=== PATIENT | male | born 1975 | race Caucasian/White ===

== ENCOUNTER 2017-05-30 06:07 | Observation (INO) | payer OTHER ==
[2017-05-15 16:24] VITALS: BMI 59.0
[~2017-05-30] VITALS: Ht 177.8 cm; Wt 187.0 kg
[2017-05-30] VITALS (12 sets, daily range): BP systolic 91–137; BP diastolic 52–84; PULSE 60–66; TEMP 36.5–37; O2SAT 91–100; Ht 177.8 cm; Wt 187.0 kg
[~2017-05-30 06:07] MED LIST: ALLO100T PO; ASPI81TA28 PO; ATOR80TA PO; CALC0.2510 PO; CARV12.52 PO; CEFAZOLIN 3000MG IV PUSH 22.5 ML IV SCH; CHOL2000 PO; CITA20TA9 PO; CRD200 PO; GABA-112 PO; INSHRI SQ; LNX125 PO; MULT-506 PO; MXT150 PO; RANI150T85 PO; SACU1TAB7 PO; TORS100T13 PO; WARF5TAB90 PO
[2017-05-30] MEDS: LACTATED RINGER'S 1000ML IV SCH ×2 (06:42→07:16)
[2017-05-30] MEDS ORDERED: BACITRACIN 50000 UNIT VIAL ONE (06:45)
[2017-05-30] MEDS ORDERED: BUPIVACAINE 0.5 % 5 MG/1 ML MPF 30ML VIAL ONE (06:45)
[2017-05-30] MEDS ORDERED: LIDOCAINE HCL 1% 20 ML VIAL ONE (06:45)
[2017-05-30] MEDS ORDERED: DEXTROSE 50% 50 ML SYR ONE ×2 (07:02→12:36)
[2017-05-30 07:05] LABS: INR 1.6 (0.9-1.1); PTT PATIENT 32.9 SECONDS (21.0-31.0)
[2017-05-30] MEDS ORDERED: ALBU4TAB10 PO (07:14)
[2017-05-30] MEDS ORDERED: NURSING VERBAL MED ORDER ONE ×6 (07:15→16:45)
[2017-05-30] MEDS ORDERED: ATROPINE SULFATE 0.1 MG/ML 5ML SYR IV PRN (07:30)
[2017-05-30] MEDS ORDERED: ONDANSETRON INJ 2 MG/ML 2 ML VIAL IV PRN (07:30)
[2017-05-30] MEDS ORDERED: EpHEDrine SULFATE INJ 50 MG/ML AMP IV PRN (07:30)
[2017-05-30] MEDS ORDERED: FENTANYL CITRATE INJ 50 MCG/1 ML 2 ML VIAL IV PRN (07:30)
[2017-05-30] MEDS ORDERED: SODIUM CHLORIDE 0.9% 1000ML 1,000 ML IV SCH (07:30)
[2017-05-30] MEDS ORDERED: FENTANYL CITRATE INJ 50 MCG/1 ML 2 ML VIAL ONE (07:52)
[2017-05-30] MEDS ORDERED: LIDOCAINE HCL 2% 2 ML VIAL (20MG/ML) ONE (07:52)
[2017-05-30] MEDS ORDERED: SUCCINYLCHOLINE CHLORIDE 20 MG/ML 10 ML VIAL IV ONE (07:52)
[2017-05-30] MEDS ORDERED: PROPOFOL IV EMULSION 10 MG/ML 20 ML VIAL IV ONE (07:52)
[2017-05-30] MEDS ORDERED: MIDAZOLAM HCL 1 MG/ML 2ML VIAL ONE ×3 (07:52→11:01)
--- NOTE | 2017-05-30 07:56 | History & Physical Bridge Note ---
H&P Re-Evaluation Bridge Note: I have examined the patient, reviewed the History & Physical and in the interval since the performance of the History & Physical I have noted the following changes of clinical significance: No changes noted
[2017-05-30] MEDS ORDERED: KETAMINE HCL INJ 50 MG/ML 10 ML VIAL ONE (09:59)
[2017-05-30] MEDS ORDERED: EpINEphrine INJ 1MG/ML AMP 1 MG/ML AMP ONE (10:48)
--- NOTE | 2017-05-30 13:23 | Anesthesiology Progress Note ---
Anesthesia Post Op Note Date & Time May 30, 2017 at 13:23 Vital Signs Pain Intensity: 3 Vital Signs Past 12 Hours Date Time Temp Pulse Resp B/P (MAP) Pulse Ox O2 Delivery O2 Flow Rate FiO2 05/30/17 13:14 60 16 124/71 (88) 96 Nasal Cannula 3 05/30/17 13:10 60 16 122/70 (87) 96 Nasal Cannula 3 05/30/17 06:49 36.5 65 20 120/68 94 Room Air Notes Mental Status: alert / awake / arousable, participated in evaluation Pt Amnestic to Procedure: Yes Nausea / Vomiting: adequately controlled Pain: adequately controlled Airway Patency, RR, SpO2: stable & adequate BP & HR: stable & adequate Hydration State: stable & adequate Anesthetic Complications: no major complications apparent
--- NOTE | 2017-05-30 13:38 | [facility] Post Operative Brief Note ---
Immediate Operative Summary Operative Date May 30, 2017. Pre-Operative Diagnosis icm EF<20%, LBBB, Chronic systolic HF-NYHA Class III, pVT Post-Operative Diagnosis same Procedure(s) Performed upgrade from a single chamber ICD to a BiVentricular ICD, peripheral and coronary sinus venogram Surgeon kadie vicente Soccer Player Surgeon(s) none Estimated Blood Loss 30cc Findings See Below (see offiical report) see offiical report Fluids (cc crystalloids) 500cc D5W; 600ccLR Specimens None Drains None Anesthesia Type MAC Complication(s) none Disposition Accompanied Pt To Recover: yes Disposition: PCU
[2017-05-30] MEDS ORDERED: LPT20 PO (13:39)
--- NOTE | 2017-05-30 13:41 | Discharge Instructions ---
Discharge Instructions Date of Service May 30, 2017. Admission Reason for Admission: Ischemic Cardiomyopathy Discharge Discharge Diagnosis / Problem: ICM EF <20%, LBBB, Chronic systolic HF-NYHA Class III; pVT Discharge Goals Goal(s): Improve function Activity Recommendations Activity Limitations: as noted below Lifting Limitations: no more than 10 pounds (do not lift more than 10 pounds with your left arm for 2 weeks; do not lift the left elbow over the left shoulder for 1 month) May Resume Sexual Activity: after two weeks Shower/Bathe: tomorrow Driving or Machine Use: resume 3 days after discharge . Instructions / Follow-Up Instructions / Follow-Up ACTIVITY RECOMMENDATIONS: * Do not raise affected arm over head for 4 weeks. SPECIAL CARE INSTRUCTIONS: * If bleeding occurs, apply direct pressure to area for 5 minutes. * Call your doctor if you have severe pain, fever, drainage or bleeding at site. * Keep dressing on and dry for 48 hours then remove. * Keep any scheduled doctor's appointment. * Implant Card - hand held device with website information given. SKIN IRRITATION: * You may experience some redness and/or swelling in the area where radiation was administered. If any skin irritation occurs, please contact your family physician. FOLLOW UP VISIT: Keep any scheduled doctor appointments. Current Hospital Diet Patient's current hospital diet: AHA Diet (Heart Healthy), Low Sodium Diet (2gm Na), Diabetes Type 2 Diet Discharge Diet Recommended Diet: AHA Diet (Heart Healthy), Low Sodium Diet (2gm Na), Diabetes Type 2 Diet Procedures Procedures Performed: upgrade from a single chamber ICD to a BiVentricular ICD, peripheral and coronary sinus venogram Pending Studies Studies pending at discharge: no Medical Emergencies . Who to Call and When: Medical Emergencies: If at any time you feel your situation is an emergency, please call 911 immediately. . Non-Emergent Contact Non-Emergency issues call your: Grade Tamper . . "Provider Documentation" section prepared by Lela Ren. . VTE Core Measure Inpt VTE Proph given/why not?: Warfarin (Coumadin)
[2017-05-30] MEDS ORDERED: ACETAMINOPHEN 325 MG TAB PO PRN (13:45)
--- NOTE | 2017-05-30 13:48 | Discharge Summary ---
Discharge Summary Date of Service May 30, 2017. Discharge Summary Admission Date: 05/30/2017 Discharge Date: May 31, 2017 Discharge Disposition: Home Principal Diagnosis: ICM EF <20%, LBBB, Chronic systolic HF-NYHA Class III, pVT Secondary Diagnoses/Problems: HTN, HLD, H/O LV mural thrombus on most recent echo was calcified, VIVIANE, Morbid obesity, CKD stage II Procedures: Upgrade from a single chamber ICD to a BiVentricular rate responsive ICD with peripheral and coronary sinus venogram under fluoroscopic guidance Medication Reconciliation New Medications: Atorvastatin (Lipitor) 20 Mg Tab 40 MG PO HS for 30 Days, TAB Continued Medications: Albuterol (Ventolin) 4 Mg Tab 4 MG PO inhaler, TAB Allopurinol (Zyloprim) 100 Mg Tab 100 MG PO BID, TAB Amiodarone HCl (Amiodarone HCl) 200 Mg Tab 200 MG PO UD, TAB TID FOR 2 WEEKS AND THE BID FOR 1 WEEK Aspirin (Aspirin Ec) 81 Mg Tab 81 MG PO QAM Calcitriol (Rocaltrol Cap) 0.25 Mcg Cap 0.25 MCG PO M W , CAP Carvedilol (Coreg) 12.5 Mg Tab 12.5 MG PO BID, TAB Cholecalciferol (Vitamin D3) 2,000 Unit Cap 1 CAP PO QAM, CAP 3 Refills Citalopram Hydrobromide (Celexa) 20 Mg Tab 20 MG PO QAM, TAB Digoxin (Digoxin) 0.125 Mg Tab 0.125 MG PO QAM EVERYDAY EXCEPT TUES, THURS Gabapentin (Neurontin) 100 Mg Cap 100 MG PO TID, CAP Mexiletine Hcl (Mexiletine Hcl) 150 Mg Cap 150 MG PO TID Multivitamin (Multivitamin) Tab 1 TAB PO QAM, TAB Ranitidine (Zantac) 150 Mg Tab 150 MG PO BID, TAB Sacubitril-Valsartan (Entresto 49-51 mg) 1 Tab Tab 1 TAB PO BID Torsemide (Demadex) 100 Mg Tab 50 MG PO BID, TAB Warfarin Sodium (Coumadin) 5 Mg Tab 7.5 MG PO HS, TAB [Humulin R] () 1 DOSE SQ UD INUSLIN PUMP Discontinued Medications: Atorvastatin (Lipitor) 80 Mg Tab 80 MG PO HS, TAB Admission Information Physical Exam (per Admitting): aaox3, NAD NC/AT, EOMI Supple Distant S1/S2, no murmur appreciated CTA b/l No w/r/r Soft obese +1 LE edema No focal deficits Skin intact Hospital Course Pt admitted for upgrade from single chamber ICD to BiV rate Responsive ICD with peripheral and coronary sinus venogram due to ICM EF <20%, LBBB, Chronic systolic HF-NYHA Class III, pVT. He underwent procedure without any complications. He had a CMP, Digoxin level-morning of discharge. He is to continue on amiodarone 200mg daily, mexiletine 150mg TID, his lipitor should be decreased to 40mg daily upon discharge. He was discharged home. Total time spent on discharge = 30 minutes This includes examination of the patient, discharge planning, medication reconciliation, and communication with other providers. Discharge Instructions ACTIVITY RECOMMENDATIONS: * Do not raise affected arm over head for 4 weeks. SPECIAL CARE INSTRUCTIONS: * If bleeding occurs, apply direct pressure to area for 5 minutes. * Call your doctor if you have severe pain, fever, drainage or bleeding at site. * Keep dressing on and dry for 48 hours then remove. * Keep any scheduled doctor's appointment. * Implant Card - hand held device with website information given. SKIN IRRITATION: * You may experience some redness and/or swelling in the area where radiation was administered. If any skin irritation occurs, please contact your family physician. FOLLOW UP VISIT: Keep any scheduled doctor appointments.
[2017-05-30] MEDS ORDERED: IV FLUIDS COMPLETED PRN ×2 (14:45)
[2017-05-30] MEDS: MULTIVITAMIN TAB PO SCH (15:43)
[2017-05-30] MEDS: TORSEMIDE 20 MG TAB PO SCH (15:44)
[2017-05-30] MEDS: GABAPENTIN 100 MG CAP PO SCH ×2 (15:45→21:33)
[2017-05-30] MEDS: SACUBITRIL-VALSARTAN 49-51 MG TAB PO SCH (15:45)
[2017-05-30] MEDS ORDERED: GLUCAGON FOR INJ 1 MG VIAL SQ PRN (15:45)
[2017-05-30] MEDS ORDERED: GLUCOSE 10 TABS/TUBE PO PRN (15:45)
[2017-05-30] MEDS ORDERED: GLUCOSE 40% GEL 15 GM TUBE PO PRN (15:45)
[2017-05-30] MEDS ORDERED: HumuLIN-R 10 ML VIAL SC PRN (15:45)
[2017-05-30] MEDS ORDERED: DEXTROSE 50% 50 ML SYR IV PRN (15:45)
[2017-05-30] MEDS: OXYCODONE/ACETAMINOPHEN 5-325 TAB PO PRN (15:48)
[2017-05-30] MEDS: RANITIDINE HCL 150 MG TAB PO SCH (15:48)
[2017-05-30] MEDS: ALLOPURINOL 100 MG TAB PO SCH (15:49)
[2017-05-30] MEDS: CITALOPRAM 20 MG TAB PO SCH (15:50)
[2017-05-30] MEDS: [UNRECOGNIZED DRUG - OTHER] SCH ×2 (15:53→21:36)
[2017-05-30] MEDS: AMIODARONE 200 MG TAB PO SCH (18:23)
[2017-05-30] MEDS ORDERED: ATORVASTATIN 40 MG TAB PO SCH (21:00)
[2017-05-30] MEDS ORDERED: WARFARIN SOD 7.5 MG TAB PO SCH (21:00)
[2017-05-30] MEDS: CARVEDILOL 12.5 MG TAB PO SCH (21:35)
[2017-05-30] MEDS: MEXILETINE HCL 150 MG PO SCH (21:36)
[2017-05-31] VITALS: O2SAT 93
[2017-05-31] MEDS: OXYCODONE/ACETAMINOPHEN 5-325 TAB PO PRN ×2 (02:00→07:40)
[2017-05-31 03:50] VITALS: BP 137/83; PULSE 63; TEMP 36.6; O2SAT 94
[2017-05-31 04:00] VITALS: O2SAT 93
[2017-05-31 06:57] LABS: ALBUMIN 2.4 gm/dl (3.4-5.0); CALCIUM 8.4 mg/dl (8.5-10.1); CREATININE 2.41 mg/dl (0.60-1.40); POTASSIUM 4.1 mmol/L (3.5-5.1)
[2017-05-31 06:59] LABS: TOTAL PROTEIN 6.7 gm/dl (6.4-8.2)
[2017-05-31] MEDS: [UNRECOGNIZED DRUG - OTHER] SCH (07:00)
--- NOTE | 2017-05-31 07:12 | DIAGNOSTIC IMAGING REPORT ---
TWO VIEW CHEST CLINICAL HISTORY: Cardiac pacemaker implantation. FINDINGS: PA and lateral chest radiographs are obtained. No prior studies are available for comparison at the time of dictation. The PA views are degraded by apical lordotic positioning. A 3-lead cardiac AICD has been placed. Leads project over the right atrial appendage, the right ventricle, and coronary sinus. The heart is markedly enlarged. The pulmonary vasculature is noncongested. No airspace consolidation or pleural effusion is identified. There is no pneumothorax. The bony thorax appears intact. IMPRESSION: 1. Status post AICD implantation as above. No pneumothorax is seen post procedure. 2. Cardiomegaly without radiographic evidence of congestive failure. 3. The lungs are clear. Electronically signed by: Raphael Reyes M.D. 05/31/2017 7:10 AM Dictated Date/Time: 05/31/2017 7:09 AM
[2017-05-31 07:37] VITALS: BP 114/77; PULSE 60; TEMP 36.6; O2SAT 95
[2017-05-31] MEDS: CARVEDILOL 12.5 MG TAB PO SCH (07:41)
[2017-05-31] MEDS: GABAPENTIN 100 MG CAP PO SCH (07:41)
[2017-05-31] MEDS: ALLOPURINOL 100 MG TAB PO SCH (07:42)
[2017-05-31] MEDS: RANITIDINE HCL 150 MG TAB PO SCH (07:42)
[2017-05-31] MEDS: TORSEMIDE 20 MG TAB PO SCH (07:42)
[2017-05-31] MEDS: AMIODARONE 200 MG TAB PO SCH (07:43)
[2017-05-31] MEDS: MEXILETINE HCL 150 MG PO SCH (07:44)
--- NOTE | 2017-05-31 08:04 | OPERATIVE REPORT ---
DATE OF OPERATION: 05/30/2017 PREOPERATIVE DIAGNOSES: Ischemic cardiomyopathy, ejection fraction less than 20%, left bundle-branch block, chronic systolic heart failure [place] Heart Association class 3, paroxysmal ventricular tachycardia, on mexiletine and amiodarone. POSTOPERATIVE DIAGNOSES: Same. PROCEDURE: Upgrade from a single chamber implantable cardiac defibrillator to biventricular rate responsive implantable cardiac defibrillator along with peripheral and coronary sinus venogram, all under fluoroscopic guidance. SURGEON: Lela Ren DO. RENTAL CLERK: None. ANESTHESIA: Monitored anesthetic care administered via anesthesiology. Total of 6 mg of Versed, 100 mcg of fentanyl, 50 mg of ketamine; start time 9:19, end time 12:55. ANTIBIOTICS: 3 grams of Ancef. IV FLUIDS: 500 mL of D5W and 600 mL of LR. BLOOD LOSS: 30 mL CONTRAST: 30 mL COMPLICATIONS: None. CONDITION: Stable. URINE OUTPUT: Not applicable. SPECIMENS: None. FINDINGS: See below. DRAINS: None. INDICATIONS: This is a 42-year-old gentleman who has a past medical history for ischemic cardiomyopathy, ejection fraction less than 20%, left bundle-branch block, chronic systolic heart failure [place] Heart Association class 3, paroxysmal ventricular tachycardia with ICD shock in 04/2017, started on mexiletine, had recurrent VT, so amiodarone was added on 05/13/2017, coronary artery disease status post STEMI years ago at [place], he had a proximal 95% LAD along with a distal 100% and with a large thrombus that had spontaneous dissection with distal emboli, hypertension, hyperlipidemia, history of LV mural thrombus that was found in 2016, on his most recent echo in 04/2017 the thrombus looked calcified, morbid obesity, obstructive sleep apnea, on CPAP, chronic kidney disease stage II. He was recommended upgrade to a biventricular defibrillator. CONSENT: Consent was obtained prior to the patient going into the electrophysiology lab. The patient was informed of the risks, benefits and alternatives to the procedure. Risks include but not limited to sudden cardiac , cardiac arrhythmias, cerebrovascular accident, myocardial infarction, injury to blood vessels, chamber of the heart, lungs, bleeding and infection. The patient understood these risks and agreed to the procedure as planned. Informed consent was obtained. DESCRIPTION OF THE PROCEDURE: The patient was brought into the electrophysiology lab in a fasting state. He was connected to continuous cardiac monitoring. A timeout was performed to ensure the patient's identity and procedure correctly. The patient also got a right radial artery A-line via anesthesiology. He was prepped and draped over the left infraclavicular space in a normal surgical standard fashion. Monitored anesthetic care was given throughout the procedure for the patient's comfort level via anesthesiology. [place] precautions were maintained throughout the procedure. 20 mL of 1% lidocaine-bupivacaine mixture were given in the left deltopectoral groove. Incision was made in left deltopectoral groove. We did a peripheral venogram using 10 mL of IV contrast diluted in 10 mL of saline, followed by 20 mL flush; however, probably due to his low cardiac output, the venogram was not the best, so I repeated it with just 10 mL of strength, followed by a flush. The fill was not the greatest and I was concerned that there might actually be some part of an occlusion in the subclavian vein. I was luckily able to get venous access with a very medial subclavian vein stick and a Glidewire was inserted without any resistance. A long 9-Bengali sheath was inserted over the guidewire without any resistance. The dilator was removed and 2 wires were placed down through the sheath to allow for retained venous access. The sheath was removed, flushed, dilator reinserted over, and then it was reinserted over one of the Glidewires without any resistance. The Glidewire and dilator were removed. The Glidewire was then placed over an MPX Medtronic coronary sinus sheath and inserted into the right ventricle. The dilator and the guidewire was removed, and coronary sinus access was obtained using the diagnostic coronary sinus Decapolar EP catheter which helped me see the AV electrograms. I then was able to slide the MPX over the EP catheter into the coronary sinus. Coronary sinus venogram was performed which identified 2 small posterolateral branches. They seemed to be a little bit on the truncated side. We were able to float a Whisper wire down into one of the branches. Since there was a little bit of a takeoff, I did then also use a 90 inner catheter to get me more support into the branch. Then, we tracked the left ventricular pacing lead over the Whisper wire out into the peripheral branch. We had decent thresholds. The Whisper wire was then removed and a stylet was placed to have some support. Then, under fluoroscopic guidance, the 90 inner sheath was split, followed then by the MPX sheath. I then placed a long 7-Bengali sheath through one of the retained guidewires without any resistance. The guidewire and dilator removed, and we positioned the right atrial lead onto the lateral wall of the right atrium. There was adequate pacing and sensing thresholds with no diaphragmatic stimulation with high output pacing. The long 7-Bengali sheath was peeled away under fluoroscopic guidance and the right atrial lead was sutured down to the pectoralis muscle. I then split the long 9-Bengali sheath that was on the LV lead under fluoroscopic guidance and then the LV lead was sutured down to the pectoralis muscle. The defibrillator pocket was expanded and disrupted caudally and inferiorly and then washed with bacitracin and saline, flushed. I then detached the old right ventricular lead, we tested it intraoperatively, see below for results. Then, it was attached to the new defibrillator, making sure that the pins were in appropriate position, passed set screws, followed then by the new LV and RA leads were attached to the new defibrillator, making sure that the pins were in appropriate position, passed set screws. The defibrillator and the new RA and RV leads were placed in an antibiotic pouch and then the defibrillator was placed in the pocket, making sure that the leads were lying flat beneath the device. Dejuan stat was placed in the pocket. Then, the incision was closed in a 3-layer fashion using 2-0 Vicryl interrupted suture, followed by 3-0 Vicryl interrupted suture, followed by 4-0 Monocryl running stitch. Dermabond was applied, followed by a pressure dressing. EQUIPMENT: 1. The explanted generator is a Artis II VR [id number], serial number [id number], implanted 11/30/2009, voltage 2.63 volts. 2. The new defibrillator generator is a [employer] MRI quad [employer]OR-D SureScan [id number], serial #[id number]. 3. Right atrial lead, Medtronic 5076-58 cm, serial #[id number]. 4. Right ventricular lead model number 6947-75 cm, serial #[id number], implanted 11/30/2009. 5. Left ventricular pacing lead is a Medtronic 4598-88 cm, serial #[id number]. INTRAOPERATIVE TESTIN. Right atrial lead: P-wave 5.9 millivolts, impedance 707 ohms, threshold 0.5 volts at 0.7 milliamps. 2. Right ventricular lead: R-wave 13.7 millivolts, impedance 669 ohms, threshold 0.9 volts at 1.3 milliamps. 3. Left ventricular lead programmed bipolar LV2-LV3, impedance 451 ohms, threshold 1.2 volts at 3.5 milliamps. FINAL MEASUREMENTS THROUGH THE DEVICE: 1. Right atrial lead: P-wave 2.4 millivolts, impedance 513 ohms, threshold 3.5 volts at 0.4 milliseconds. 2. Right ventricular lead: R-wave 13 millivolts, impedance 570 ohms, threshold 1 volt at 0.4 milliseconds. 3. Left ventricular lead programmed LV2-LV3, impedance 551 ohms, threshold 1.5 volts at 0.4 milliseconds. 4. RV coil 46 ohms. 5. SVC coil 58 ohms. FINAL PARAMETERS: MVP-R 60/130. Right atrial amplitude 5 volts, pulse width 0.4 milliseconds, sensitivity 0.3 millivolts; right ventricular amplitude 2 volts, pulse width 0.4 milliseconds, sensitivity 0.3 millivolts; the left ventricular amplitude 4 volts, pulse width 0.4 milliseconds, a VF zone at 200 beats per minute for 12/16 detection intervals, a VT zone at 167 beats per minute with 16 detection intervals, a monitor zone at 146 beats per minute. His DFTs from original implant were 18 joules. IMPRESSION: Successful upgrade from a single chamber implantable cardiac defibrillator to a biventricular rate responsive implantable cardiac defibrillator under fluoroscopic guidance along with a peripheral and coronary sinus venogram due to ischemic cardiomyopathy, left bundle-branch block, chronic systolic heart failure [place] Heart Association class 3 and paroxysmal ventricular tachycardia. PLAN: Monitor the patient overnight, 12-lead ECG, chest x-ray. He is not allowed to lift the left elbow over the left shoulder for 1 month. He cannot lift more than 10 pounds with the left arm for 2 weeks. He can shower in 2 days and takeoff the pressure dressing in 2 days. He should follow up in our [place] office as scheduled for a wound check the following week. We will lower his Lipitor from 80 to 40 or even 20 since he is on amiodarone. We will decrease his amiodarone to 200 mg a day. He should continue his mexiletine at 150 mg 3 times a day. We will get CMP as well as a digoxin level. Otherwise, we will restart him back on the Coumadin and continue his other home medicines. I attest to the content of the Intraoperative Record and any orders documented therein. Any exception s are noted below.
--- NOTE | 2017-05-31 08:41 | Cardiology Follow-Up ---
Subjective Subjective Date of Service: May 31, 2017. Pt evaluation today including: conversation w/ patient, physical exam, chart review, lab review, review of studies, review of inpatient medication list Additional Details: Pt seen and examined, states that he feels well. Some soreness at pocket site, otherwise, well. Denies cp, sob, palpitations, lightheadedness or dizziness. Tele reviewed: sinus rhythm with AV pacing Review of Systems Respiratory: No see HPI, No cough, No sputum, No wheezing, No shortness of breath, No dyspnea on exertion, No dyspnea at rest, No hemoptysis, No problem reported Cardiac: No see HPI, No chest pain, No orthopnea, No PND, No edema, No claudication, No palpitations, No problem reported Objective Vital Signs Last Vital Signs Documentation Date Time Temp Pulse Resp B/P (MAP) Pulse Ox O2 Delivery O2 Flow Rate FiO2 05/31/17 07:43 60 05/31/17 07:37 36.6 20 114/77 (89) 95 Room Air 05/31/17 04:00 3.0 Physical Exam: General Appearance: WD/WN, no apparent distress, + obese Eyes: bilateral eyes normal inspection, bilateral eyes PERRL, bilateral eyes EOMI ENT: normal ENT inspection, hearing grossly normal, pharynx normal Neck: supple, no adenopathy, thyroid normal, no JVD Respiratory/Chest: chest non-tender, lungs clear, normal breath sounds, no respiratory distress, no accessory muscle use Cardiovascular: regular rate, rhythm, no edema, no JVD, no murmur, + gallop/S4 Abdomen: normal bowel sounds, non tender, soft, no organomegaly Extremities: normal inspection, no pedal edema, no calf tenderness Neurologic/Psychiatric: performance test architect II-XII nml as tested, no motor/sensory deficits, alert, normal mood/affect, oriented x 3 Skin: normal color, warm/dry, no rash Lymphatic: no adenopathy Assessment and Plan 1. s/p device upgrade tolerated well device interrogation this AM: functioning appropriately restrictions reviewed will d/c to home
[2017-05-31] MEDS ORDERED: DIGOXIN 0.125 MG TAB PO SCH (09:00)
[2017-05-31] MEDS ORDERED: ASPIRIN 81 MG ECTAB PO SCH (09:00)
[2017-05-31] MEDS: MULTIVITAMIN TAB PO SCH (09:10)
[2017-05-31] MEDS: SACUBITRIL-VALSARTAN 49-51 MG TAB PO SCH (09:11)
[2017-05-31 09:47] VITALS: BP 114/77; PULSE 60; TEMP 36.6; O2SAT 95
--- NOTE | 2017-05-31 10:37 | Anesthesiology Progress Note ---
Anesthesia Post Op Note Date & Time May 31, 2017 at 10:36 Vital Signs Vital Signs Past 12 Hours Date Time Temp Pulse Resp B/P (MAP) Pulse Ox O2 Delivery O2 Flow Rate FiO2 05/31/17 09:47 36.6 60 20 95 Room Air 05/31/17 08:00 Room Air 05/31/17 07:43 60 05/31/17 07:37 36.6 60 20 114/77 (89) 95 Room Air 05/31/17 04:00 93 CPAP 3.0 05/31/17 03:50 36.6 63 22 137/83 (101) 94 Room Air 05/31/17 00:00 93 CPAP 3.0 05/30/17 23:40 36.8 64 24 128/71 (90) 91 Room Air Notes Mental Status: alert / awake / arousable, participated in evaluation Pt Amnestic to Procedure: Yes Nausea / Vomiting: adequately controlled Pain: adequately controlled Airway Patency, RR, SpO2: stable & adequate BP & HR: stable & adequate Hydration State: stable & adequate Anesthetic Complications: no major complications apparent
== END 2017-05-31 10:25 | disposition home or self-care (01) ==
LOC: C.ACU 06:07 → ENRESERV 11:19 → CANRESERV 11:19 → ENRESERV 12:16 → C.2T 13:35
PROVIDERS: ADMIT Internal Medicine; ATTEND Internal Medicine
DX: I25.5 Ischemic cardiomyopathy (principal); I50.22 Chronic systolic (congestive) heart failure; I47.2 Ventricular tachycardia; E78.2 Mixed hyperlipidemia; G47.33 Obstructive sleep apnea (adult) (pediatric); E03.9 Hypothyroidism, unspecified; E66.01 Morbid (severe) obesity due to excess calories; G62.9 Polyneuropathy, unspecified; N18.3 Chronic kidney disease, stage 3 (moderate); R56.9 Unspecified convulsions; I12.9 Hypertensive chronic kidney disease with stage 1 through stage 4 chronic kidney disease, or unspecified chronic kidney disease; I25.2 Old myocardial infarction; F41.9 Anxiety disorder, unspecified; F32.9 Major depressive disorder, single episode, unspecified; E11.42 Type 2 diabetes mellitus with diabetic polyneuropathy; Z86.718 Personal history of other venous thrombosis and embolism; Z79.4 Long term (current) use of insulin; Z79.01 Long term (current) use of anticoagulants; Z79.82 Long term (current) use of aspirin; Z98.49 Cataract extraction status, unspecified eye; Z96.41 Presence of insulin pump (external) (internal); Z95.810 Presence of automatic (implantable) cardiac defibrillator; Z98.61 Coronary angioplasty status; Z68.43 Body mass index [BMI] 50.0-59.9, adult